=== PATIENT | female | born 1995 | race Caucasian/White ===

== ENCOUNTER 2021-02-20 11:47 | Emergency (ER) | payer OTHER, SELFPAY ==
--- NOTE | ~2021-02-20 | XR_ITS ---
EXAMINATION: XR sacrum coccyx min 2V INDICATION: Pelvic pain TECHNIQUE: Three views of the sacrum and coccyx are obtained. COMPARISON: None available FINDINGS: There is no fracture, dislocation, or subluxation. The soft tissues are unremarkable. IMPRESSION: 1. No acute osseous abnormality. Reviewed, dictated and finalized at location A.
--- NOTE | ~2021-02-20 | XR_ITS ---
EXAMINATION: XR pelvis 1-2V INDICATION: Pelvic pain after fall TECHNIQUE: AP view the pelvis is obtained on two radiographs. COMPARISON: None available FINDINGS: Bone alignment is normal. There is no fracture. The soft tissues are unremarkable. IMPRESSION: 1. No acute osseous abnormality. Reviewed, dictated and finalized at location A.
[2021-02-20 12:01] VITALS: BP 131/62; PULSE 81; RESP 16; TEMP 37.4; O2SAT 100
[2021-02-20 12:05] VITALS: BP 131/62; PULSE 81; RESP 16; TEMP 37.4; O2SAT 100
--- NOTE | 2021-02-20 12:19 | ED.BACK ---
HPI - Back Pain/Injury General Chief Complaint: Back Pain/Injury Stated Complaint: Left lower hip Pain Time Seen by Provider: 02/20/21 12:15 Source: patient Mode of arrival: ambulatory Limitations: no limitations History of Present Illness HPI Narrative: Shyanne Stern is a 25 yo female with no PMH who comes to [facility] after fall off ladder about 4 feet landing on buttocks on concrete on left hip-rates pain as 6 out of 10 more severe pain when she is lying on her right hip when she moves her leg forward she is able to walk with a lot of pain. She lies her back trying to lift her legs is extremely painful Related Data Allergies Allergy/AdvReac Type Severity Reaction Status Date / Time No Known Allergies Allergy Verified 02/20/21 12:05 Review of Systems Review of Systems: CONSTITUTIONAL: Denies fever, chills, sweats. EYES: Denies visual changes, redness, discharge. ENT: Denies rhinorrhea, congestion, sore throat, otalgia. CARDIOVASCULAR: Denies chest pain, palpitations, edema. RESPIRATORY: Denies dyspnea, wheezing, cough GASTROINTESTINAL: Denies abdominal pain, nausea, vomiting, diarrhea. GENITOURINARY: Denies dysuria, hematuria, abnormal discharge SKIN: Denies rash or itching. NEUROLOGIC: Denies numbness, or focal weakness. PSYCHIATRIC: Denies anxiety or depression. Fall onto buttocks and right left hip PMFSH Past Medical History Medical History No acute medical problems Family History Family History Other No acute medical problems Social History Social History (Updated 02/20/21 @ 12:28 by Kandis Buckner CNP) Smoking status: Never smoker Alcohol intake: current Comments At time of signature, I agree with nursing past medical, surgical, social and family history. There is no relevant family history pertinent to the presenting complaint. Exam Narrative: GENERAL: This is a well-nourished, well-developed patient, in mild distress. HEAD: normocephalic, atraumatic. EYES: Sclera clear/white. Vision is grossly intact. EARS: External ears normal, Hearing grossly intact. NOSE: External nose normal without nasal discharge, nares without redness, no rhinorrhea. THROAT: Mucous membranes moist, NECK: Neck supple, non-tender CARDIOVASCULAR: Regular rate and rhythm without murmurs, gallops, or rubs. RESPIRATORY: Clear to auscultation. Breath sounds equal bilaterally. No wheezes, rales, or rhonchi. GASTROINTESTINAL: Abdomen soft, non-tender, SKIN: warm, intact with no suspicious lesions or rash, good texture and turgor. NEURO: awake, alert, and oriented to person, place and time. There were no obvious focal neurologic abnormalities. Steady gait EXTREMITIES: Normal range of motion. Tender to lower lumbar on the left; pain with straightening of the leg and moving forward is able to lift leg vertically from side but states one on back is unable to lift her leg without a lot of pain good reflexes 2+ pedal pulse no obvious abrasion reddish kang about 6 x 6 at the area that she had reports hitting on ground BACK: tender without deformity Course Course Emergency Course: Patient comes [facility] after fall off a ladder where she struck left hip and buttocks; states pain is most with movement X-ray of pelvis -no osseous abnormality Xray sacrum-no osseous abnormality Toradol 60 mg IM given - good response with pain Patient given baclofen 10 mg 1 3 times daily as needed and Toradol 10 mg 3 times daily x5 days Should use heat then ice to area; elevate and rest Vital Signs Vital signs: Vital Signs Temperature 99.3 F 02/20/21 12:01 Pulse Rate 81 02/20/21 12:01 Respiratory Rate 16 02/20/21 12:01 Blood Pressure 131/62 02/20/21 12:01 Pulse Oximetry 100 02/20/21 12:01 Temperature 99.3 F 02/20/21 12:05 Pulse Rate 81 02/20/21 12:05 Respiratory Rate 16 02/20/21 12:05 Blood Pressure
[2021-02-20] MEDS: KETOROLAC (*BKC) 60 MG/2 ML VIAL IM (12:34)
== END 2021-02-20 13:02 | disposition home or self-care (01) ==
PROVIDERS: Emergency Provider Nurse Practitioner
DX: S70.02XA Contusion of left hip, initial encounter (principal); W11.XXXA Fall on and from ladder, initial encounter
CPT/HCPCS: 72170; 72220; 96372; 99203; G0463; J1885